=== PATIENT | male | born 1960 | race Caucasian/White ===

== ENCOUNTER 2019-03-05 11:13 | Emergency (ER) | payer MEDICARE ==
[~2019-03-05] VITALS: Ht 190.5 cm; Wt 108.9 kg
[2019-03-05 11:41] VITALS: BP 147/95
--- NOTE | 2019-03-05 11:48 | ER.PDOC ---
General Chief Complaint: General Complaint Stated Complaint: ANXIETY TRAVEL OUT OF US: No Time seen by MD: 11:40 Source: patient Exam Limitations: no limitations History of Present Illness Initial Comments Pt visiting from [place], ran out of his anxiety medications and Dilaudid, plus morphine which he uses for chronic pain, unable to sleep for 24 hours. Timing/Duration: 24 hours Severity: mild Associated Symptoms: chest pain Past Medical History Medical History: asthma Surgical History: knee Social History Smoking: less than 1 pack/day Alcohol Use: occassionally Drug Use: none Review of Systems Constitutional: no symptoms reported EENTM: no symptoms reported Respiratory: no symptoms reported Cardiovascular: see HPI Gastrointestinal: no symptoms reported Genitourinary: no symptoms reported Musculoskeletal: no symptoms reported Skin: no symptoms reported Psychiatric/Neurological: see HPI Hematologic/Lymphatic: no symptoms reported Immunological/Allergic: no symptoms reported Physical Exam General Appearance: No Apparent Distress, WD/WN, Anxious EENT: eyes nml inspection, nml ENT inspection Neck: Non-Tender, Full Range of Motion Respiratory: chest non-tender, lungs clear, normal breath sounds, no respiratory distress CVS: reg rate & rhythm, no murmur, no gallop Gastrointestinal: Normal Bowel Sounds, No Organomegaly, No Pulsatile Mass, Non Tender Back: Normal Inspection, No CVA Tenderness, No Vertebral Tenderness Extremities: Normal Range of Motion Neurologic/Psychiatric: animal technician II-XII NML as Tested Skin: Normal Color Lymphatic: No Adenopathy Results/Orders Results/Orders Orders - ALEXYS BETANCOURT MD Ekg-Routine (03/05/19 11:49) Lorazepam (Ativan) (03/05/19 11:49) Vital Signs Date Time Temp Pulse Resp B/P (MAP) Pulse Ox O2 Delivery O2 Flow Rate FiO2 03/05/19 11:41 99.0 96 17 147/95 (112) 99 Room Air 99.0 03/05/19 11:36 99.0 96 16 99 Room Air 99.0 03/05/19 11:36 99.0 96 17 99.0 Departure Time of Disposition: 11:54 Disposition: 01 HOME, SELF-CARE Impression: Primary Impression: Anxiety Additional Impression: Panic attack Condition: Stable Patient Instructions: Anxiety and Panic Attacks, [id number] Referrals: PCP,UNKNOWN (PCP) PRIMARY CARE PROVIDER Duration or Time Spent with Pa: 15 ALEXYS BETANCOURT MD Mar 05, 2019 11:48
[2019-03-05] MEDS ORDERED: ATIVAN PO STA (11:49)
--- NOTE | 2019-03-05 11:54 | PCM.EKG ---
[facility] Test Date: 2019-03-05 Test Time: 11:53:44 Pat Name: DIANDRA TAPIA Department: Patient ID: [id number] Room: Gender: M Production Worker: ZINA : 1960 Requested By: SARWAT SCHULZ Order Number: [id number] Reading MD: Sarwat Schulz Measurements Intervals [place] Rate: 89 P: 13 FL: 154 QRS: -18 QRSD: 90 T: 32 QT: 390 QTc: 474 Interpretive Statements Normal sinus rhythm Normal ECG No previous ECG available for comparison Electronically Signed On 03-05-2019 12:35:10 CDT by Sarwat Schulz Please click the below link to view image of tracing.
[2019-03-05] MEDS ORDERED: ATIVAN ONE (12:17)
[2019-03-05 12:57] VITALS: BP 147/95
== END 2019-03-05 12:21 | disposition home or self-care (01) ==
LOC: ER 11:13
DX: F41.0 Panic disorder [episodic paroxysmal anxiety] (principal); F17.210 Nicotine dependence, cigarettes, uncomplicated; G89.29 Other chronic pain; J45.909 Unspecified asthma, uncomplicated
CPT/HCPCS: 93005; 96374; 96376; 99284; 99285